=== PATIENT | female | born 1980 | race African-American/Black ===

== ENCOUNTER 2023-09-03 12:07 | Emergency (ER) | payer OTHER, SELFPAY ==
[2023-09-03 12:09] VITALS: BP 106/67; BMI 17.0
--- NOTE | 2023-09-03 12:19 | ED.GENMED ---
History of Present Illness
General
Chief Complaint: Weakness
Source: patient
Exam Limitations: none
Time Seen by Provider: 09/03/23 12:18
Nursing documentation reviewed up to this point in time: agreed with
Travel History
Have you had any contact with someone who has COVID-19?: No
Do you have any symptoms of coronavirus? Fever > 100 degrees, chills, cough, shortness of breath, sore throat, loss of taste or smell, muscle aches, or headache?: No
History of Present Illness
History of Present Illness:
43-year-old female from detention presents for evaluation. Patient reports for the past week she has had pain with taking a deep breath' in my heart.' She denies any recent illness cough fever chills. Patient is not on control she does not
smoke. Denies any recent injury. No prior history of DVT PE. Denies other extremity swelling. No cardiac history. She felt minimally general achiness no runny nose cough.
Past History
Past History
ED Past Medical History: Psychiatric (Anxiety, depression, posttraumatic stress disorder, malingering)
Review of Systems
Review of Systems
Allergies reviewed?: Yes
All Other Systems: ROS reviewed and negative except as documented in HPI and ROS
Constitutional: Reports no symptoms; Denies fever, fatigue or chills
EENT: Reports no symptoms
Respiratory: Reports other (Pain with deep breath)
Cardiac: Reports chest pain (left sided cp with deep breath )
ABD/GI: Reports no symptoms
: Reports no symptoms
Musculoskeletal: Reports no symptoms
Skin: Reports no symptoms
Neurological: Reports no symptoms
Hematologic/Lymphatic: Reports no symptoms
Psychiatric: Reports no symptoms
Phy Exam
General Physical Exam
General Presentation: no apparent distress
General age: appears stated age
General Skin: warm and dry
General Habitus: normal
General Mental: alert
General Hydration: appears well hydrated
Cardiovascular Exam
Cardiovascular Exam: regular rate/rhythm, no murmur and normal peripheral pulses
Pulmonary Exam
Pulmonary Exam: lungs clear and no respiratory distress
Neurological Exam
Neurological Exam: alert and oriented x3
Musculoskeletal Exam
Musculoskeletal Exam: full ROM
Skin Exam
Skin Exam: normal color and warm/dry
Psychiatric Exam
Psychiatric Exam: normal mood/affect
Course
Orders/Labs/Results
Orders:
Orders
09/03/23 12:08
Electrocardiogram (*1) Urgent
Reason for Study: Chest Pain
Cardiac Monitoring- Treatment ONCE
EKG- Treatment ONCE
IV Insert/Care/Rem.- Treatment PRN
09/03/23 12:12
Complete Blood Count/With Diff Urgent
Comprehensive Metabolic Panel Urgent
HCG, Serum Qualitative Screen Urgent
Comment: HCG QUALITATIVE ADDED ON BY FLOOR 12:30PM 09-03-23
09/03/23 12:33
Add On- LAB Urgent
Tests Added?: qualitative HCG
09/03/23 12:48
DDimer [D-Dimer] Urgent
09/03/23 13:39
Chest [CR Chest - 2 Views ] Urgent
Comment:
Reason For Exam: pain left chest with deep breath
09/03/23 15:05
Add On- LAB Urgent
Tests Added?: troponin
09/03/23 15:17
Troponin I Urgent
Abnormal Lab Results
09/03/23
12:12
WBC 3.4 L 10^3/uL
(4.8-10.8)
RBC 3.53 L 10^6/uL
(4.20-5.40)
Hgb 10.4 L g/dL
(12.0-16.0)
Hct 32.6 L %
(37.0-47.0)
MCHC 31.9 L g/dL
(33.0-37.0)
MPV 11.7 H fL
(7.4-10.4)
Absolute Lymphs (auto) 1.0 L 10^3/uL
(1.2-3.4)
Monocytes % 9.9 H %
(1.7-9.3)
Glucose 138 H mg/dl
(70-99)
09/03/23 12:12
09/03/23 12:12
Vital Signs
Initial and Last Documented VS:
Initial Vital Signs
Temp Pulse Resp BP Pulse Ox
98.2 F 83 17 106/67 100
09/03/23 12:09 09/03/23 12:09 09/03/23 12:09 09/03/23 12:09 09/03/23 12:09
Last Documented Vital Signs
Temp Pulse Resp BP Pulse Ox
98.2 F 83 23 120/82 99
09/03/23 12:09 09/03/23 13:45 09/03/23 13:45 09/03/23 13:00 09/03/23 13:45
Bunch Breaker consulted with Physician
Bunch Breaker consulted with physician?: Yes
Name of Physician Consulted: Dr Hinds
MDM/Problems Addressed
Differential Diagnosis Includes:
Not limited to viral syndrome muscular chest pain costochondritis PE less likely ACS
MDM/Problems Addressed:
Patient with no cardiac history. Has felt pain with deep breath intermittently in the left chest for the past several days since Thursday. She is no acute distress she looks well she is nontoxic no DVT PE history or risk factors. Negative D-dimer
no acute findings on chest x-ray negative cardiac troponin. Patient had no prior EKGs here she did come with EKGs from present. EKG has some nonspecific T wave abnormality but no acute concerning findings. Patient no acute distress here stable
for discharge back to detention.
*Critical Care Note
Total Time (30-74mins, 75-104mins- exclusive of procedures): Not Applicable
ED Attending Note
-
Portions of this chart may have been created with voice recognition software.� Occasional wrong word or��sound alike� substitutions may have occurred due to the inherent limitations of voice recognition software.
Discharge Plan
Departure
Patient Disposition: Halfway
Date of Disposition: 09/03/23
Time of Disposition: 16:00
Patient with high blood pressure during this ER visit?: No
Condition: Fair
Covid-19: Not Applicable
Discharge Problem:
Chest pain
Instructions: Chest pain
Referrals:
[facility] [Family Provider] -
Activity Restrictions/Additional Instructions:
Patient's cardiac blood work was negative no concerning findings for blood clot. Vital signs stable. Patient should follow-up with primary care physician. Chest x-ray was negative.
Interventions
Interventions:
*General Assessment Last Done: 09/03/23 12:09
*Neglect/Abuse Screening Last Done: 09/03/23 12:09
ED- Fall Risk Assessment Last Done: 09/03/23 12:10
ED- Cardiac Assessment Last Done: 09/03/23 12:10
ED- Neurological Assessment Last Done: 09/03/23 12:10
ED- Pulmonary Assessment Last Done: 09/03/23 12:10
Discharge Date and Time
Print Language: LAO
[2023-09-03 12:26] LABS: % Basophils 0.6 % (0-2); % Eosinophils 1.7 % (0-6); % Lymphocytes 30.3 % (20.5-51.1); % Monocytes 9.9 % (1.7-9.3); % Neutrophils 57.5 % (42.2-75.2); Absolute Eosinophils 0.1 10^3/uL (0-0.7); Absolute Monocytes 0.3 10^3/uL (0.1-0.6); Hematocrit 32.6 % (37.0-47.0); Hemoglobin 10.4 g/dL (12.0-16.0); Mean Corp Hgb Conc. 31.9 g/dL (33.0-37.0); Mean Corpuscular Hgb 29.5 pg (27.0-31.0); Mean Corpuscular Volume 92.4 fL (81.0-99.0); Mean Platelet Volume 11.7 fL (7.4-10.4); Nucleated Red Blood Cells % 0 %; Platelet Count 169 10^3/uL (130-400); Red Blood Cell Count 3.53 10^6/uL (4.20-5.40); Red Cell Dist. Width 13.7 % (11.5-14.5); White Blood Cell Count 3.4 10^3/uL (4.8-10.8)
[2023-09-03 12:39] LABS: ALT (SGPT) 23 U/L (0-35); AST (SGOT) 35 U/L (14-36); Albumin 3.9 g/dl (3.5-5.0); Alkaline Phosphatase 73 U/L (38-126); Blood Urea Nitrogen 12 mg/dl (7-17); Calcium 9.1 mg/dl (8.4-10.2); Carbon Dioxide 25 mmol/L (22-30); Chloride 107 mmol/L (98-107); Estimated Creatinine Clearance 89 ml/min; Glucose 138 mg/dl (70-99); Potassium 3.9 mmol/L (3.5-5.1); Sodium 139 mmol/L (135-145); Total Bilirubin 0.8 mg/dl (0.2-1.3); Total Protein 6.9 g/dl (6.3-8.2); eGFR > 60.00
[2023-09-03 13:00] VITALS: BP 120/82
[2023-09-03 13:09] LABS: D-Dimer 0.28 ug/mlFEU (0.00-0.50)
[2023-09-03 13:49] LABS: HCG, Serum Qualitative Screen Negative
[2023-09-03 15:55] LABS: Troponin I 0.033 ng/ml
== END 2023-09-03 16:12 ==
LOC: EMR 12:07
PROVIDERS: Emergency Medicine; Nurse Practitioner; EMERGENCY PHYSICIAN Emergency Medicine
DX: R07.1 Chest pain on breathing (principal); R06.02 Shortness of breath; R53.1 Weakness; R94.31 Abnormal electrocardiogram [ECG] [EKG]; F32.A Depression, unspecified; F41.9 Anxiety disorder, unspecified; F43.10 Post-traumatic stress disorder, unspecified; Z88.1 Allergy status to other antibiotic agents
CPT/HCPCS: 99283; 71046; 80053; 84484; 84703; 85025; 85379; 93005

== ENCOUNTER 2023-09-06 09:19 | Emergency (ER) | payer OTHER, SELFPAY ==
[2023-09-06 09:21] VITALS: BP 102/71
[2023-09-06 09:22] VITALS: BP 102/71; BMI 17.9
[2023-09-06 09:43] LABS: % Basophils 0.8 % (0-2); % Eosinophils 2.7 % (0-6); % Immature Granulocytes 0.3 % (0-0.5); % Lymphocytes 40.2 % (20.5-51.1); % Monocytes 7.2 % (1.7-9.3); % Neutrophils 48.8 % (42.2-75.2); Absolute Eosinophils 0.1 10^3/uL (0-0.7); Absolute Lymphocytes 1.5 10^3/uL (1.2-3.4); Absolute Monocytes 0.3 10^3/uL (0.1-0.6); Absolute Neutrophils 1.8 10^3/uL (1.4-6.5); Hematocrit 35.7 % (37.0-47.0); Hemoglobin 11.3 g/dL (12.0-16.0); Mean Corp Hgb Conc. 31.7 g/dL (33.0-37.0); Mean Corpuscular Hgb 28.5 pg (27.0-31.0); Mean Corpuscular Volume 90.2 fL (81.0-99.0); Mean Platelet Volume 11.6 fL (7.4-10.4); Nucleated Red Blood Cells % 0 %; Platelet Count 198 10^3/uL (130-400); Red Blood Cell Count 3.96 10^6/uL (4.20-5.40); White Blood Cell Count 3.8 10^3/uL (4.8-10.8)
[2023-09-06 09:54] LABS: COVID-19 Antigen Negative (Negative)
--- NOTE | 2023-09-06 09:54 | ED.GENMED ---
History of Present Illness
General
Chief Complaint: Weakness
Source: patient and records
Time Seen by Provider: 09/06/23 09:46
Travel History
Have you had any contact with someone who has COVID-19?: No
Do you have any symptoms of coronavirus? Fever > 100 degrees, chills, cough, shortness of breath, sore throat, loss of taste or smell, muscle aches, or headache?: Yes
Symptoms:: SOB
History of Present Illness
History of Present Illness:
43-year-old female with psychiatric past medical history presenting the emergency department for shortness of breath x 1 week accompanied with mild joint pain noting pain most pronounced within the left hand and left elbow, generalized abdominal and
generally feeling unwell. Per correctional officers patient was unable to bear weight today but was seen ambulatory here. No documented fevers. No known sick contacts although patient is a external inmate so certainly possible could have been
exposed to something without knowing. No medications given prior to arrival. No other concerns at this time. Of note, patient was seen at this facility 3 days ago for similar and had workup done including a negative D-dimer and labs. States
known new symptoms today other than the mild joint pain and swelling.
Past History
Past History
ED Past Medical History: Psychiatric (Anxiety, depression, posttraumatic stress disorder, malingering)
ED Past Surgical History:
Social History
Tobacco: Non-smoker
Alcohol: None
Drug: None
Personal: Single
Living: senior living
Review of Systems
Review of Systems
All Other Systems: ROS reviewed and negative except as documented in HPI and ROS
Phy Exam
Physical Exam
Physical Exam:
GENERAL: Alert , in no apparent distress, petite and thin
EYE: clear conjunctiva b/l
HEAD: NCAT
ENT: o/p clr, mmm.
CARDIAC: Regular rate and rhythm, no murmur.
LUNGS: Clear breath sounds bilaterally, no acute respiratory distress, no wheezes/rales/rhonchi
ABDOMEN: Soft, without focal tenderness, no r/g, no cvat
NEUROLOGICAL: Alert and oriented
SKIN: Warm and dry, skin intact.
MUSCULOSKELETAL: Mild soft tissue swelling to the dorsum of the left hand around the second metacarpal without any overlying erythematous changes, ecchymosis or breaks in the skin. I do not appreciate any edema to the left elbow however patient is
pointing to the olecranon as to where she feels discomfort. Patient has full range of motion of all extremities. Well perfused.
PSYCH: Normal and appropriate interaction.
Scores
Heart Failure Risk
Heart Failure Risk Score: Not Applicable
Heart Score for Chest Pain Patients
STEMI patient?: Not applicable
Withdrawal Assessment of Alcohol
Withdrawal Assessment Completed?: Not applicable
Course
Orders/Labs/Results
Orders:
Orders
09/06/23 09:31
CMP [Comprehensive Metabolic Panel] Urgent
COVID-19 Antigen Urgent
Source: Nasal Swab
Complete Blood Count/With Diff Urgent
HCG, Serum Qualitative Screen Urgent
Comment: AD ON
Influenza A+B Rapid Molecular Urgent
MIRIAN Source: Nasal Swab
Specimen Description:
09/06/23 09:48
Add On- LAB Urgent
Tests Added?: serum hcg
09/06/23 09:51
CR Chest - 2 Views Urgent
Comment:
Reason For Exam: SOB
09/06/23 09:52
Acetaminophen [Tylenol] 1,000 mg PO NOW STA
Abnormal Lab Results
09/06/23
09:31
WBC 3.8 L 10^3/uL
(4.8-10.8)
RBC 3.96 L 10^6/uL
(4.20-5.40)
Hgb 11.3 L g/dL
(12.0-16.0)
Hct 35.7 L %
(37.0-47.0)
MCHC 31.7 L g/dL
(33.0-37.0)
MPV 11.6 H fL
(7.4-10.4)
09/06/23 09:31
09/06/23 09:31
Vital Signs
Initial and Last Documented VS:
Initial Vital Signs
BP
102/71
09/06/23 09:21
Last Documented Vital Signs
Temp Pulse Resp BP Pulse Ox
98.7 F 73 18 107/75 100
09/06/23 09:22 09/06/23 10:01 09/06/23 09:22 09/06/23 10:01 09/06/23 10:01
MDM/Problems Addressed
Differential Diagnosis Includes:
Viral syndrome, pneumonia, I do not have concern for PE given patient's vital sign stability as well as lack of symptoms including cough, chest pain, pleurisy
MDM/Problems Addressed:
43-year-old female presenting emergency department for evaluation of 1 week of shortness of breath, second visit to the ER this week. She had a negative D-dimer and chest x-ray at that time. She has a mild leukopenia today which was also noted on
visit 3 days ago. Patient is in no acute distress. Vital signs are normal. No tachycardia/tachypnea/hypoxia. I suspect viral etiology to be the most likely diagnosis. Labs, COVID/flu testing ordered. Will recheck a chest x-ray. I do not have
suspicion for PE. Anticipate discharge back to correctional facility.
*Radiology
Radiology exam reviewed: preliminary read by ED provider (Normal chest x-ray)
*Pulse Oximetry
Patient hypoxic: no
*Heel Turner Interpretation
Rate: normal
Rhythm: sinus
*Critical Care Note
Total Time (30-74mins, 75-104mins- exclusive of procedures): Not Applicable
Patient Management
Escalation/DeEscalation of care consider admission/obs:
Patient's workup remains unremarkable. She is stable for outpatient management and medically cleared for incarceration
ED Attending Note
-
Portions of this chart may have been created with voice recognition software.� Occasional wrong word or��sound alike� substitutions may have occurred due to the inherent limitations of voice recognition software.
Discharge Plan
Departure
Patient Disposition: Home (Routine Discharge)
Date of Disposition: 09/06/23
Time of Disposition: 10:53
Patient with high blood pressure during this ER visit?: No
Discharge Problem:
Fatigue
Instructions: Generalized Weakness (DC)
Referrals:
[facility] [Family Provider] -
Activity Restrictions/Additional Instructions:
Patient is medically cleared for incarceration
Interventions
Interventions:
*Risk Screen - Suicide Last Done: 09/06/23 09:22
*General Assessment Last Done: 09/06/23 09:22
*Neglect/Abuse Screening Last Done: 09/06/23 09:22
ED- Fall Risk Assessment Last Done: 09/06/23 09:22
*ED COVID-19 Vaccine History Last Done: 09/06/23 09:22
*Nursing Disposition Last Done: 09/06/23 11:03
ED- Cardiac Assessment Last Done: 09/06/23 09:22
ED- Neurological Assessment Last Done: 09/06/23 09:22
ED- Pulmonary Assessment Last Done: 09/06/23 09:22
Discharge Date and Time
Discharge Date/Time: 09/06/23 11:03
Print Language: GREENLANDIC
[2023-09-06 09:56] VITALS: BP 101/74
[2023-09-06] MEDS: TYLENOL 1000 MG PO (09:58)
[2023-09-06 09:59] LABS: ALT (SGPT) 22 U/L (0-35); AST (SGOT) 30 U/L (14-36); Albumin 4.4 g/dl (3.5-5.0); Alkaline Phosphatase 80 U/L (38-126); Blood Urea Nitrogen 12 mg/dl (7-17); Carbon Dioxide 27 mmol/L (22-30); Chloride 102 mmol/L (98-107); Estimated Creatinine Clearance 81 ml/min; Glucose 84 mg/dl (70-99); Potassium 3.9 mmol/L (3.5-5.1); Sodium 137 mmol/L (135-145); Total Bilirubin 0.9 mg/dl (0.2-1.3); Total Protein 7.6 g/dl (6.3-8.2); eGFR > 60.00
[2023-09-06 10:01] VITALS: BP 107/75
[2023-09-06 10:49] LABS: HCG, Serum Qualitative Screen Negative
== END 2023-09-06 11:03 | disposition home or self-care (01) ==
LOC: EMR 09:19
PROVIDERS: EMERGENCY PHYSICIAN Emergency Medicine
DX: R53.83 Other fatigue (principal)
CPT/HCPCS: 99284; 71046; 80053; 84703; 85025; 87502; 87811